=== PATIENT | male | born 1990 | race Caucasian/White ===

== ENCOUNTER 2021-04-22 09:52 | Emergency (ER) | payer OTHER ==
[~2021-04-22] VITALS: Ht 167.6 cm; Wt 149.7 kg
[2021-04-22 09:52] VITALS: BP 107/66
--- NOTE | 2021-04-22 09:52 | NUR ---
31 Y/O MALE C/O DIZZINESS WHILE WORKING OUTSIDE IN THE HEAT, A&OX4, GCS 15. +NAUSEA, DENIES LOC, FEVER, SOB, VOMITING, DIARRHEA, COUGH, NO ONE SICK AT HOME, BG 124 IN FIELD, 0/10 PAIN, PT PLACED ON VS MONITOR, ERMD AWARE, BED LOCKED AND LOW, RAILS UP X2 NKDA NO HISTORY, NO MEDS
--- NOTE | 2021-04-22 09:52 | NUR ---
BIBA BLS TO ER BED 8
--- NOTE | 2021-04-22 11:07 | NUR ---
DR MG AT BEDSIDE FOR MSE
--- NOTE | 2021-04-22 11:28 | NUR ---
LAB AT BED SIDE YTO DRAW BLOOD
--- NOTE | 2021-04-22 11:32 | NUR ---
XR AT BEDSIDE FOR PORTABE CXR
[2021-04-22 11:47] LABS: BASOPHILS # (AUTO) 0.1 K/uL (0.00-0.22); BASOPHILS % (AUTO) 0.8 % (0.0-2.0); EOSINOPHILS # (AUTO) 0.1 K/uL (0-0.4); EOSINOPHILS % (AUTO) 1.2 % (0.0-4.0); HEMATOCRIT 45.1 % (36-52); HEMOGLOBIN 15.2 g/dL (12.0-18.0); LYMPHOCYTES # (AUTO) 1.6 K/uL (2.0-11.5); LYMPHOCYTES % (AUTO) 15.4 % (20.5-51.1); MEAN CORPUSCULAR HEMOGLOBIN 32 pg (27-31); MEAN CORPUSCULAR HGB CONC 34 g/dL (33-37); MONOCYTES # (AUTO) 0.7 K/uL (0.8-1.0); MONOCYTES % (AUTO) 6.5 % (1.7-9.3); NEUTROPHILS # (AUTO) 7.9 K/uL (1.8-7.7); NEUTROPHILS % (AUTO) 76.1 % (42.2-75.2); PLATELET COUNT (AUTO) 241 K/uL (140-450); RED BLOOD CELL COUNT(AUTO) 4.74 MIL/uL (4.20-6.10); RED CELL DISTRIBUTION WIDTH 13.8 % (11.6-13.7); WHITE BLOOD COUNT (AUTO) 10.4 K/uL (4.8-10.8)
[2021-04-22 12:00] VITALS: BP 130/73
[2021-04-22 12:19] LABS: ALBUMIN 3.4 g/dL (3.4-5.0); ANION GAP 9.8 (8-16); CARBON DIOXIDE 30.4 mmol/L (21-32); CREATININE 1.1 mg/dL (0.6-1.3); POTASSIUM 4.2 mmol/L (3.5-5.1); TOTAL BILIRUBIN 0.3 mg/dL (0.0-1.0)
--- NOTE | 2021-04-22 13:55 | NUR ---
Patient discharged with v/s stable. Written and verbal after care instructions ABOUT SLEEP APNEA AND DIZZINESS given and explained. Patient verbalized understanding. Ambulatory with steady gait. All questions addressed prior to discharge. Advised to follow up with PMD.
== END 2021-04-22 13:55 | disposition home or self-care (01) ==
LOC: MED 09:52
DX: R42 Dizziness and giddiness (principal); R06.81 Apnea, not elsewhere classified
CPT/HCPCS: 36415; 71045; 80053; 83880; 84484; 85025; 93005; 99285